=== PATIENT | male | born 1990 | race Caucasian/White ===

== ENCOUNTER 2021-04-10 17:18 | Emergency (ER) | payer OTHER ==
[~2021-04-10] VITALS: Ht 177.8 cm; Wt 84.0 kg
[2021-04-11 00:10] LABS: GC DNA AMPLIFICATION NEGATIVE (NEGATIVE)
--- NOTE | 2021-04-11 00:28 | REPVR ---
PROCEDURE INFORMATION: Exam: CT Abdomen And Pelvis Without Contrast Exam date and time: 04/10/2021 10:50 PM Age: 30 years old Clinical indication: Abdominal pain; Flank; Right; Additional info: Right flank pain TECHNIQUE: Imaging protocol: Computed tomography of the abdomen and pelvis without contrast. Radiation optimization: All CT scans at this facility use at least one of these dose optimization techniques: automated exposure control; mA and/or kV adjustment per patient size (includes targeted exams where dose is matched to clinical indication); or iterative reconstruction. COMPARISON: No relevant prior studies available. FINDINGS: Lungs: Mild bibasilar dependent change. Liver: Normal. No mass. Gallbladder and bile ducts: Normal. No calcified stones. No ductal dilation. Pancreas: Normal. No ductal dilation. Spleen: Normal. No splenomegaly. Adrenal glands: Normal. No mass. Kidneys and ureters: 1 cm indeterminate right renal hypodensity. No hydronephrosis or hydroureter. Stomach and bowel: Unremarkable. No obstruction. No mucosal thickening. Appendix: Normal appendix. Intraperitoneal space: Unremarkable. No free air. No significant fluid collection. Vasculature: Unremarkable. No abdominal aortic aneurysm. Lymph nodes: Unremarkable. No enlarged lymph nodes. Urinary bladder: Unremarkable as visualized. Reproductive: Unremarkable as visualized. Bones/joints: Unremarkable. No acute fracture. Soft tissues: Unremarkable. IMPRESSION: 1. No obstructive uropathy. 2. 1 cm indeterminate right renal hypodensity. Correlation with ultrasound as clinically warranted. COMMENTS: Consistent with the [employer]'s Incidental Findings Committee white paper (J Am Ashlee Radiol 2018): Any incidental renal lesion less than 1 cm or classified as too small to characterize, or any incidental cystic renal lesion characterized as simple-appearing, is likely benign. No follow-up imaging is recommended for these lesions per consensus recommendations based on imaging criteria. Electronically signed by: Bam Bishop On 04/11/2021 00:28:38 AM
[2021-04-11 01:15] VITALS: BP 126/71
--- NOTE | 2021-04-11 02:14 | REPVR ---
PROCEDURE INFORMATION: Exam: US Retroperitoneal Limited, Kidneys Exam date and time: 04/11/2021 2:05 AM Age: 30 years old Clinical indication: Abnormal findings; Abnormal radiologic finding of the abdomen; Radiologic exam and body structure: CT abd/pel; Additional info: Right renal lesion TECHNIQUE: Imaging protocol: Real-time ultrasound of the retroperitoneum with image documentation. Examination was focused on the kidneys. COMPARISON: CT ABD PELVIS W/O CONTRAST 04/10/2021 11:07 PM FINDINGS: Right kidney: Right kidney measures 11 cm in length. 8 mm right renal cyst. Right kidney is without hydronephrosis. Left kidney: Left kidney measures up to 13.7 cm in length. No left-sided hydronephrosis. IMPRESSION: 1. 8 mm right renal cyst. 2. Kidneys otherwise appear within normal limits. Electronically signed by: Bam Bishop On 04/11/2021 02:13:36 AM
[2021-04-11] MEDS ORDERED: KETO10TAB PO (02:28)
--- NOTE | 2021-04-12 10:17 | ED PDOC ---
Post-Departure Follow-Up radiology report faxed to [facility] Patricia Ojeda MD Apr 12, 2021 10:17
== END 2021-04-11 02:50 | disposition home or self-care (01) ==
LOC: M ED 17:18
DX: R10.30 Lower abdominal pain, unspecified (principal); N50.811 Right testicular pain; Z88.1 Allergy status to other antibiotic agents; N28.1 Cyst of kidney, acquired